=== PATIENT | male | born 1940 | race Caucasian/White ===

== ENCOUNTER → 2016-07-23 | Outpatient (CLI) | payer MEDICARE, OTHER ==
[~2016-07-23] MED LIST: AMITRIPTYLINE10 MG PO; ASPIRIN 32325 MG/TAB PO; CO Q-1010 MG PO; FLOMAX0.4 MG PO; GLIMEPIRIDE2 MG PO; GLUCOPHAGE500 MG PO; GLYBURIDE2.5 MG PO; LEVITRA10 MG PO; LISINOPRIL10 MG PO; MEDI-FIRST ASP325 MG PO; OSTEO BI-FLEX1 TAB PO; PROVENTIL0.09 MG/Ac IH; SPIRIVA18 MCG IH; SUPER EPA1 SGL PO; TOPROL XL50 MG PO; TRAZADONE HYDR100 MG PO; VITAMIN D NATU400 IU PO; VITAMIN D1000 IU PO; ZOCOR20 MG PO; ZOLOFT100 MG PO
== END ==
LOC: RAD 09:53
DX: R06.2 Wheezing (principal); R91.1 Solitary pulmonary nodule

== ENCOUNTER → 2016-08-17 | Outpatient (CLI) | payer MEDICARE, OTHER | LOC: RAD 15:35 | DX: R91.1 Solitary pulmonary nodule (principal) ==

== ENCOUNTER 2016-09-03 20:50 | Emergency (ER) | payer MEDICARE, OTHER | END 2016-09-03 21:41 | disposition home or self-care (01) | LOC: ED 20:50 | DX: S61.412A Laceration without foreign body of left hand, initial encounter (principal); S50.01XA Contusion of right elbow, initial encounter; S60.512A Abrasion of left hand, initial encounter; S60.511A Abrasion of right hand, initial encounter; S60.416A Abrasion of right little finger, initial encounter; W45.8XXA Other foreign body or object entering through skin, initial encounter | CPT/HCPCS: 90715; A4550; A4649 ==

== ENCOUNTER → 2017-03-27 | Outpatient (CLI) | payer MEDICARE, OTHER ==
[2016-09-03 21:41] VITALS: BP 137/83
[2017-03-27 11:12] LABS: BASO # 0.1 (0.02-0.10); EOS # 0.4 (0.04-0.40); EOS % 3.6 % (0.0-4.0); LYMPH# 2.6 (1.50-4.00); MEAN CELL VOLUME 99 fl (78-100); MEAN CORPUSCULAR HEMOGLOBIN 33 pg (27-31); MEAN CORPUSCULAR HGB CONC 33 g/dL (33-37); MONO # 0.9 (0.20-0.80); NEU # 6.2 (1.40-6.50); PLATELET COUNT 190 K/mm3 (130-400); RED BLOOD COUNT 4.53 M/mm3 (4.20-5.60); RED CELL DISTRIBUTION WIDTH 14.1 % (11.5-14.5); WHITE BLOOD COUNT 10.2 K/mm3 (4.8-10.8)
[2017-03-27 11:22] LABS: ALBUMIN 4.3 g/dL (3.5-5.0); BUN/CREATININE RATIO 21.2 (6.0-26.0); CALCIUM 10.1 mg/dL (8.4-10.2); POTASSIUM 4.6 mmol/L (3.6-5.0); TOTAL BILIRUBIN 0.6 mg/dL (0.2-1.3)
== END ==
LOC: LAB 10:45
PROVIDERS: Nurse Practitioner Family
DX: E11.9 Type 2 diabetes mellitus without complications (principal); Z12.5 Encounter for screening for malignant neoplasm of prostate; J43.2 Centrilobular emphysema; N52.9 Male erectile dysfunction, unspecified

== ENCOUNTER → 2017-07-10 | Outpatient (CLI) | payer MEDICARE, OTHER ==
[2016-09-03 21:41] VITALS: BP 137/83
== END ==
LOC: LAB 09:54
DX: E11.9 Type 2 diabetes mellitus without complications (principal); J44.1 Chronic obstructive pulmonary disease with (acute) exacerbation; E78.2 Mixed hyperlipidemia; I10 Essential (primary) hypertension

== ENCOUNTER → 2017-07-11 | Outpatient (CLI) | payer MEDICARE, OTHER ==
[2016-09-03 21:41] VITALS: BP 137/83
[2017-07-11 12:12] LABS: BUN/CREATININE RATIO 17.1 (6.0-26.0); CALCIUM 9.5 mg/dL (8.4-10.2); POTASSIUM 4.6 mmol/L (3.6-5.0)
== END ==
LOC: LAB 11:42
PROVIDERS: Nurse Practitioner Family
DX: E11.9 Type 2 diabetes mellitus without complications (principal); N18.3 Chronic kidney disease, stage 3 (moderate)

== ENCOUNTER → 2017-10-16 | Outpatient (CLI) | payer MEDICARE, OTHER ==
[2016-09-03 21:41] VITALS: BP 137/83
[2017-10-16 13:30] LABS: BUN/CREATININE RATIO 16.4 (6.0-26.0); CALCIUM 9.3 mg/dL (8.4-10.2); CARBON DIOXIDE 25 mmol/L (22-30); GLUCOSE 143 mg/dL (75-110); POTASSIUM 4.6 mmol/L (3.6-5.0); SODIUM 140 mmol/L (137-145)
== END ==
LOC: LAB 13:04
PROVIDERS: Nurse Practitioner Family
DX: E11.22 Type 2 diabetes mellitus with diabetic chronic kidney disease (principal); N18.3 Chronic kidney disease, stage 3 (moderate)

== ENCOUNTER 2017-11-04 19:29 | Emergency (ER) | payer MEDICARE, OTHER ==
[~2017-11-04] VITALS: Ht 190.5 cm; Wt 113.2 kg
[2017-11-04] MEDS ORDERED: ZESTRIL10 M1 PO (19:51)
[2017-11-04] MEDS ORDERED: ZOLOFT 100MG100 MG PO (19:52)
[2017-11-04] MEDS ORDERED: RT SPIRIVA INH18 MCG IH (19:52)
[2017-11-04] MEDS ORDERED: ZOCOR20 M1 PO (19:52)
[2017-11-04] MEDS ORDERED: PROAIR HFA0.09 MG/AC IH (19:52)
[2017-11-04] MEDS ORDERED: CENTRUM SILVER1 EAC4 PO (19:52)
[2017-11-04] MEDS ORDERED: RESTORIL30 M1 PO (19:53)
[2017-11-04] MEDS ORDERED: GLUCOPHAGE500 MG/TAB PO (19:53)
[2017-11-04] MEDS ORDERED: CHILDREN'S ASPI81 M1 PO (19:53)
[2017-11-04] MEDS ORDERED: TOPROL XL 50MG50 MG PO (19:55)
[2017-11-04 20:20] LABS: BASO # 0.1 (0.02-0.10); EOS # 0.6 (0.04-0.40); HEMATOCRIT 41.4 % (42.0-52.0); HEMOGLOBIN 13.9 g/dL (13.5-18.0); LYMPH# 2.1 (1.50-4.00); MEAN CELL VOLUME 100 fl (78-100); MEAN CORPUSCULAR HEMOGLOBIN 34 pg (27-31); MEAN CORPUSCULAR HGB CONC 34 g/dL (33-37); MEAN PLATELET VOLUME 10.5 fl (7.4-10.4); MONO # 1.2 (0.20-0.80); NEU # 8.3 (1.40-6.50); PLATELET COUNT 143 K/mm3 (130-400); RED BLOOD COUNT 4.14 M/mm3 (4.20-5.60); RED CELL DISTRIBUTION WIDTH 14.2 % (11.5-14.5); WHITE BLOOD COUNT 12.3 K/mm3 (4.8-10.8)
[2017-11-04 20:48] LABS: CALCIUM 9.4 mg/dL (8.4-10.2); POTASSIUM 4.5 mmol/L (3.6-5.0); TOTAL BILIRUBIN 0.5 mg/dL (0.2-1.3); TOTAL PROTEIN 7.3 g/dL (6.3-8.2)
[2017-11-04 21:50] VITALS: BP 148/78
[2017-11-06] MEDS ORDERED: NICOTINE21 MG/24 H TD (12:10)
[2017-11-06] MEDS ORDERED: ALBUTEROL2.5 MG/3 M IH (12:11)
[2017-11-06] MEDS ORDERED: LEVAQUIN 750MG750 M1 PO (12:12)
[2017-11-06] MEDS ORDERED: AMARYL 2MG T2 MG/TAB PO (12:13)
[2017-11-06] MEDS ORDERED: PREDNISONE10 MG PO (12:14)
== END 2017-11-04 21:50 | disposition other institution (70) ==
LOC: ED 19:29 → MED/SURG 21:50 → ED 21:50
PROVIDERS: Physician Assistant
DX: J44.1 Chronic obstructive pulmonary disease with (acute) exacerbation (principal); F17.210 Nicotine dependence, cigarettes, uncomplicated; E11.9 Type 2 diabetes mellitus without complications; I10 Essential (primary) hypertension; N28.9 Disorder of kidney and ureter, unspecified; D72.829 Elevated white blood cell count, unspecified; R91.1 Solitary pulmonary nodule
CPT/HCPCS: J2930

== ENCOUNTER → 2017-11-11 | Outpatient (CLI) | payer MEDICARE, OTHER ==
[2017-11-06 11:15] VITALS: BP 124/59
[~2017-11-11] MED LIST changes: +ALBUTEROL2.5 MG/3 M IH; +AMARYL 2MG T2 MG/TAB PO; +CENTRUM SILVER1 EAC4 PO; +CHILDREN'S ASPI81 M1 PO; +GLUCOPHAGE500 MG/TAB PO; +LEVAQUIN 750MG750 M1 PO; +NICOTINE21 MG/24 H TD; +PREDNISONE10 MG PO; +PROAIR HFA0.09 MG/AC IH; +RESTORIL30 M1 PO; +RT SPIRIVA INH18 MCG IH; +TOPROL XL 50MG50 MG PO; +ZESTRIL10 M1 PO; +ZOCOR20 M1 PO; +ZOLOFT 100MG100 MG PO
[2017-11-11 11:12] LABS: BUN/CREATININE RATIO 25.2 (6.0-26.0); CALCIUM 8.8 mg/dL (8.4-10.2); POTASSIUM 4.5 mmol/L (3.6-5.0)
[2017-11-11 11:19] LABS: HEMATOCRIT 43.1 % (42.0-52.0); HEMOGLOBIN 14.2 g/dL (13.5-18.0); MEAN CELL VOLUME 99 fl (78-100); MEAN CORPUSCULAR HEMOGLOBIN 33 pg (27-31); MEAN CORPUSCULAR HGB CONC 33 g/dL (33-37); PLATELET COUNT 206 K/mm3 (130-400); RED BLOOD COUNT 4.36 M/mm3 (4.20-5.60); RED CELL DISTRIBUTION WIDTH 14.4 % (11.5-14.5); WHITE BLOOD COUNT 17.5 K/mm3 (4.8-10.8)
[2017-11-11 11:42] LABS: BAND 1 % (0-10); LYMPHOCYTE 16 % (20-51); MONOCYTE 4 % (3-10); NEUTROPHILS 76 % (42-75)
== END ==
LOC: LAB 10:28
PROVIDERS: Nurse Practitioner Family
DX: J20.8 Acute bronchitis due to other specified organisms (principal); N18.3 Chronic kidney disease, stage 3 (moderate); J44.1 Chronic obstructive pulmonary disease with (acute) exacerbation

== ENCOUNTER → 2018-03-07 | Outpatient (CLI) | payer MEDICARE, OTHER ==
[2017-11-06 11:15] VITALS: BP 124/59
[2018-03-07 09:00] LABS: ALBUMIN 4.1 g/dL (3.5-5.0); CALCIUM 9.6 mg/dL (8.4-10.2); POTASSIUM 4.4 mmol/L (3.6-5.0); TOTAL BILIRUBIN 0.6 mg/dL (0.2-1.3); TOTAL PROTEIN 7.2 g/dL (6.3-8.2)
== END ==
LOC: RAD 08:28
PROVIDERS: Internal Medicine
DX: R91.1 Solitary pulmonary nodule (principal); R59.0 Localized enlarged lymph nodes
CPT/HCPCS: Q9967

== ENCOUNTER → 2018-04-14 | Outpatient (CLI) | payer MEDICARE, OTHER ==
[2017-11-06 11:15] VITALS: BP 124/59
== END ==
LOC: RAD 13:24
DX: R90.82 White matter disease, unspecified (principal); C34.90 Malignant neoplasm of unspecified part of unspecified bronchus or lung
CPT/HCPCS: A9585

== ENCOUNTER → 2018-04-28 | Outpatient (CLI) | payer MEDICARE, OTHER ==
[2017-11-06 11:15] VITALS: BP 124/59
== END ==
LOC: LAB 11:24
PROVIDERS: Internal Medicine
DX: C34.12 Malignant neoplasm of upper lobe, left bronchus or lung (principal); I10 Essential (primary) hypertension

== ENCOUNTER → 2018-08-05 | Outpatient (CLI) | payer MEDICARE, OTHER ==
[2017-11-06 11:15] VITALS: BP 124/59
[2018-08-05 15:26] LABS: HEMATOCRIT 30.5 % (42.0-52.0); HEMOGLOBIN 10.7 g/dL (13.5-18.0); MEAN CORPUSCULAR HGB CONC 35 g/dL (33-37); MEAN PLATELET VOLUME 10.2 fl (7.4-10.4); PLATELET COUNT 56 K/mm3 (130-400); RED BLOOD COUNT 2.71 M/mm3 (4.20-5.60); RED CELL DISTRIBUTION WIDTH 20.2 % (11.5-14.5); WHITE BLOOD COUNT 4.9 K/mm3 (4.8-10.8)
[2018-08-05 16:13] LABS: ALBUMIN 3.5 g/dL (3.5-5.0); POTASSIUM 5.1 mmol/L (3.6-5.0); TOTAL BILIRUBIN 0.6 mg/dL (0.2-1.3); TOTAL PROTEIN 6.2 g/dL (6.3-8.2)
[2018-08-05 16:30] LABS: MEAN CELL VOLUME 113 fl (78-100); MEAN CORPUSCULAR HEMOGLOBIN 40 pg (27-31)
[2018-08-05 16:31] LABS: LYMPHOCYTE 30 % (20-51); MONOCYTE 19 % (3-10); NEUTROPHILS 50 % (42-75)
== END ==
LOC: LAB 14:58
PROVIDERS: Family Medicine
DX: E11.9 Type 2 diabetes mellitus without complications (principal); I10 Essential (primary) hypertension

== ENCOUNTER → 2018-08-11 | Outpatient (CLI) | payer MEDICARE, OTHER ==
[2017-11-06 11:15] VITALS: BP 124/59
== END ==
LOC: RAD 08:27
DX: R18.8 Other ascites (principal)

== ENCOUNTER → 2018-09-04 | Outpatient (CLI) | payer MEDICARE, OTHER ==
[2017-11-06 11:15] VITALS: BP 124/59
== END ==
LOC: RAD 07:45
DX: N18.9 Chronic kidney disease, unspecified (principal); N32.89 Other specified disorders of bladder

== ENCOUNTER → 2018-09-25 | Outpatient (CLI) | payer MEDICARE, OTHER ==
[2017-11-06 11:15] VITALS: BP 124/59
[2018-09-25 10:49] LABS: URINE APPEARANCE CLEAR; URINE BILIRUBIN NEGATIVE (NEGATIVE); URINE BLOOD NEGATIVE (NEGATIVE); URINE COLOR YELLOW; URINE GLUCOSE NEGATIVE (NEGATIVE); URINE KETONE NEGATIVE (NEGATIVE); URINE LEUKOCYTE ESTERASE NEGATIVE (NEGATIVE); URINE NITRATE NEGATIVE (NEGATIVE); URINE PROTEIN(semi-quant) TRACE mg/dL (NEGATIVE); URINE UROBILINOGEN NORMAL (NORMAL)
[2018-09-25 10:50] LABS: HEMATOCRIT 35.8 % (42.0-52.0); HEMOGLOBIN 11.8 g/dL (13.5-18.0); MEAN PLATELET VOLUME 10.2 fl (7.4-10.4); RED BLOOD COUNT 3.22 M/mm3 (4.20-5.60); RED CELL DISTRIBUTION WIDTH 13.8 % (11.5-14.5); WHITE BLOOD COUNT 5.4 K/mm3 (4.8-10.8)
[2018-09-25 10:56] LABS: CALCIUM 9.5 mg/dL (8.4-10.2); POTASSIUM 4.2 mmol/L (3.6-5.0)
== END ==
LOC: LAB 10:24
PROVIDERS: Internal Medicine Medical Oncology
DX: E11.22 Type 2 diabetes mellitus with diabetic chronic kidney disease (principal); N18.9 Chronic kidney disease, unspecified

== ENCOUNTER → 2019-01-21 | Outpatient (CLI) | payer MEDICARE, OTHER ==
[2017-11-06 11:15] VITALS: BP 124/59
[2019-01-21 10:57] LABS: ALBUMIN 4.2 g/dL (3.4-4.8); POTASSIUM 4.7 mmol/L (3.5-5.1)
[2019-01-21 10:58] LABS: CALCIUM 10.2 mg/dL (8.3-10.5)
[2019-01-21 10:59] LABS: TOTAL PROTEIN 8.2 g/dL (6.2-8.1)
[2019-01-21 11:01] LABS: TOTAL BILIRUBIN 0.4 mg/dL (0.2-1.2)
[2019-01-21 11:05] LABS: HEMOGLOBIN 13.9 g/dL (13.5-18.0); MEAN CELL VOLUME 107 fl (78-100); MEAN CORPUSCULAR HGB CONC 33 g/dL (33-37); MEAN PLATELET VOLUME 10.3 fl (7.4-10.4); PLATELET COUNT 124 K/mm3 (130-400); RED BLOOD COUNT 3.92 M/mm3 (4.20-5.60); RED CELL DISTRIBUTION WIDTH 14.4 % (11.5-14.5); WHITE BLOOD COUNT 7.1 K/mm3 (4.8-10.8)
[2019-01-21 11:06] LABS: MEAN CORPUSCULAR HEMOGLOBIN 36 pg (27-31)
[2019-01-21 11:19] LABS: LYMPHOCYTE 31 % (20-51); MONOCYTE 11 % (3-10); NEUTROPHILS 54 % (42-75)
[2019-01-21 11:57] LABS: URINE APPEARANCE CLEAR; URINE BILIRUBIN NEGATIVE (NEGATIVE); URINE BLOOD NEGATIVE (NEGATIVE); URINE COLOR YELLOW; URINE GLUCOSE NEGATIVE (NEGATIVE); URINE KETONE NEGATIVE (NEGATIVE); URINE LEUKOCYTE ESTERASE NEGATIVE (NEGATIVE); URINE MUCUS PRESENT (NOT PRESENT); URINE NITRATE NEGATIVE (NEGATIVE); URINE PROTEIN(semi-quant) TRACE mg/dL (NEGATIVE); URINE UROBILINOGEN NORMAL (NORMAL)
== END ==
LOC: LAB 10:25
PROVIDERS: Family Medicine
DX: Z00.00 Encounter for general adult medical examination without abnormal findings (principal); R73.9 Hyperglycemia, unspecified; R53.83 Other fatigue; E78.5 Hyperlipidemia, unspecified; M54.9 Dorsalgia, unspecified

== ENCOUNTER → 2019-11-06 | Outpatient (CLI) | payer MEDICARE, OTHER ==
[2017-11-06 11:15] VITALS: BP 124/59
== END ==
LOC: LAB 12:37
DX: C34.90 Malignant neoplasm of unspecified part of unspecified bronchus or lung (principal); E78.5 Hyperlipidemia, unspecified; R73.9 Hyperglycemia, unspecified

== ENCOUNTER → 2020-01-11 | Outpatient (CLI) | payer MEDICARE, OTHER ==
[2019-12-07 10:24] VITALS: BP 136/70
[~2020-01-11] MED LIST changes: +CIALIS5 MG PO; +QUETIAPINE FUMA50 MG PO; +SYMBICORT1 AE3 IH; +TRULICITY0.75 MG/0. SQ
== END ==
LOC: VAS 15:45 → RAD 15:45 → VAS 15:49
DX: C34.12 Malignant neoplasm of upper lobe, left bronchus or lung (principal); I49.1 Atrial premature depolarization; I12.9 Hypertensive chronic kidney disease with stage 1 through stage 4 chronic kidney disease, or unspecified chronic kidney disease; N18.3 Chronic kidney disease, stage 3 (moderate); I31.3 Pericardial effusion (noninflammatory); I08.2 Rheumatic disorders of both aortic and tricuspid valves

== ENCOUNTER → 2020-04-06 | Outpatient (CLI) | payer MEDICARE, OTHER ==
[2019-12-07 10:24] VITALS: BP 136/70
[2020-04-06 15:55] LABS: EOS # 0.2 (0.04-0.40); EOS % 2.6 % (0.0-4.0); HEMOGLOBIN 13.8 g/dL (13.5-18.0); LYMPH# 1.4 (1.50-4.00); MEAN CELL VOLUME 108 fl (78-100); MEAN CORPUSCULAR HGB CONC 34 g/dL (33-37); MEAN PLATELET VOLUME 10.5 fl (7.4-10.4); MONO # 0.8 (0.20-0.80); NEU # 4.8 (1.40-6.50); PLATELET COUNT 140 K/mm3 (130-400); RED BLOOD COUNT 3.79 M/mm3 (4.20-5.60); RED CELL DISTRIBUTION WIDTH 15.7 % (11.5-14.5); WHITE BLOOD COUNT 7.2 K/mm3 (4.8-10.8)
[2020-04-06 16:02] LABS: MEAN CORPUSCULAR HEMOGLOBIN 36 pg (27-31)
== END ==
LOC: LAB 15:41
PROVIDERS: Physician Assistant
DX: Z12.5 Encounter for screening for malignant neoplasm of prostate (principal); E78.5 Hyperlipidemia, unspecified; E11.22 Type 2 diabetes mellitus with diabetic chronic kidney disease; N18.30 Chronic kidney disease, stage 3 unspecified; I12.9 Hypertensive chronic kidney disease with stage 1 through stage 4 chronic kidney disease, or unspecified chronic kidney disease; J44.9 Chronic obstructive pulmonary disease, unspecified

== ENCOUNTER → 2020-11-23 | Outpatient (CLI) | payer MEDICARE, OTHER ==
[2020-11-23 12:41] LABS: BASO # 0.05 (0.02-0.10); EOS # 0.29 (0.04-0.40); EOS % 4.5 % (0.0-4.0); HEMATOCRIT 44.1 % (42.0-52.0); HEMOGLOBIN 14.5 g/dL (13.5-18.0); LYMPH# 1.26 (1.50-4.00); MEAN CELL VOLUME 99 fl (78-100); MEAN CORPUSCULAR HEMOGLOBIN 33 pg (27-31); MEAN CORPUSCULAR HGB CONC 33 g/dL (33-37); MEAN PLATELET VOLUME 9.3 fl (7.4-10.4); MONO # 0.89 (0.20-0.80); NEU # 3.86 (1.40-6.50); PLATELET COUNT 133 K/mm3 (130-400); RED BLOOD COUNT 4.44 M/mm3 (4.20-5.60); RED CELL DISTRIBUTION WIDTH 13.6 % (11.5-14.5); WHITE BLOOD COUNT 6.5 K/mm3 (4.8-10.8)
[2020-11-23 12:48] LABS: ALBUMIN 3.9 g/dL (3.4-4.8); POTASSIUM 4.5 mmol/L (3.5-5.1)
[2020-11-23 12:49] LABS: CALCIUM 9.7 mg/dL (8.3-10.5)
[2020-11-23 12:51] LABS: TOTAL PROTEIN 7.5 g/dL (6.2-8.1)
[2020-11-23 12:52] LABS: TOTAL BILIRUBIN 0.4 mg/dL (0.2-1.2)
== END ==
LOC: LAB 12:24
PROVIDERS: Family Medicine
DX: Z00.00 Encounter for general adult medical examination without abnormal findings (principal); E11.9 Type 2 diabetes mellitus without complications; E78.5 Hyperlipidemia, unspecified

== ENCOUNTER → 2021-06-13 | Outpatient (CLI) | payer MEDICARE, OTHER ==
[~2021-06-13] VITALS: Ht 188 cm; Wt 115.0 kg
[2021-06-13 12:15] VITALS: BP 136/90
[2021-06-13 12:45] LABS: BASO # 0.05 K/mm3 (0.02-0.10); EOS # 0.54 K/mm3 (0.04-0.40); EOS % 6.1 % (0.0-4.0); HEMATOCRIT 44.1 % (42.0-52.0); HEMOGLOBIN 14.4 g/dL (13.5-18.0); LYMPH# 1.24 K/mm3 (1.50-4.00); MEAN CELL VOLUME 101 fl (78-100); MEAN CORPUSCULAR HEMOGLOBIN 33 pg (27-31); MEAN CORPUSCULAR HGB CONC 33 g/dL (33-37); MEAN PLATELET VOLUME 10.1 fl (7.4-10.4); MONO # 0.99 K/mm3 (0.20-0.80); NEU # 5.85 K/mm3 (1.40-6.50); PLATELET COUNT 153 K/mm3 (130-400); RED BLOOD COUNT 4.35 M/mm3 (4.20-5.60); RED CELL DISTRIBUTION WIDTH 14.4 % (11.5-14.5); WHITE BLOOD COUNT 8.8 K/mm3 (4.8-10.8)
[2021-06-13 12:51] LABS: POTASSIUM 4.6 mmol/L (3.5-5.1)
[2021-06-13 12:52] LABS: ALBUMIN 3.9 g/dL (3.4-4.8)
[2021-06-13 12:54] LABS: TOTAL PROTEIN 7.6 g/dL (6.2-8.1)
[2021-06-13 12:56] LABS: TOTAL BILIRUBIN 0.4 mg/dL (0.2-1.2)
== END ==
LOC: LAB 12:07
PROVIDERS: Family Medicine
DX: Z00.00 Encounter for general adult medical examination without abnormal findings (principal); E11.9 Type 2 diabetes mellitus without complications; E78.5 Hyperlipidemia, unspecified; E55.9 Vitamin D deficiency, unspecified
CPT/HCPCS: J1644

== ENCOUNTER 2021-09-14 09:46 | Emergency (ER) | payer MEDICARE, OTHER ==
[2021-09-14] MEDS ORDERED: LEVOTHYROXINE0.2 MG PO (09:57)
[2021-09-14] MEDS ORDERED: METOPROLOL SUCC25 M1 PO (09:58)
[2021-09-14] MEDS ORDERED: MEGACE 40MG40 MG/TAB PO (09:58)
[2021-09-14] MEDS ORDERED: LEVOTHYROXINE0.05 MG PO (09:58)
[2021-09-14] MEDS ORDERED: OLANZAPINE7.5 MG PO (09:59)
[2021-09-14] MEDS ORDERED: PANTOPRAZOLE SO40 MG PO (09:59)
[2021-09-14] MEDS ORDERED: SIMVASTATIN20 M1 PO (10:00)
[2021-09-14 10:33] LABS: BASO # 0.02 K/mm3 (0.02-0.10); EOS # 0.28 K/mm3 (0.04-0.40); EOS % 3.3 % (0.0-4.0); HEMATOCRIT 41.1 % (42.0-52.0); HEMOGLOBIN 13.4 g/dL (13.5-18.0); LYMPH# 1.46 K/mm3 (1.50-4.00); MEAN CELL VOLUME 101 fl (78-100); MEAN CORPUSCULAR HEMOGLOBIN 33 pg (27-31); MEAN CORPUSCULAR HGB CONC 33 g/dL (33-37); MEAN PLATELET VOLUME 9.7 fl (7.4-10.4); MONO # 1.09 K/mm3 (0.20-0.80); NEU # 5.45 K/mm3 (1.40-6.50); PLATELET COUNT 150 K/mm3 (130-400); RED BLOOD COUNT 4.06 M/mm3 (4.20-5.60); RED CELL DISTRIBUTION WIDTH 13.8 % (11.5-14.5); WHITE BLOOD COUNT 8.4 K/mm3 (4.8-10.8)
[2021-09-14 10:45] LABS: ALBUMIN 3.5 g/dL (3.4-4.8); POTASSIUM 4.5 mmol/L (3.5-5.1)
[2021-09-14 10:46] LABS: CALCIUM 9.8 mg/dL (8.3-10.5)
[2021-09-14 10:47] LABS: TOTAL PROTEIN 6.6 g/dL (6.2-8.1)
[2021-09-14 10:49] LABS: TOTAL BILIRUBIN 0.4 mg/dL (0.2-1.2)
[2021-09-14 12:09] LABS: URINE WBC 0 /hpf (0-3)
[2021-09-14 12:42] LABS: URINE APPEARANCE CLEAR; URINE BILIRUBIN NEGATIVE (NEGATIVE); URINE BLOOD TRACE (NEGATIVE); URINE COLOR YELLOW; URINE GLUCOSE NEGATIVE (NEGATIVE); URINE KETONE NEGATIVE (NEGATIVE); URINE LEUKOCYTE ESTERASE NEGATIVE (NEGATIVE); URINE NITRATE NEGATIVE (NEGATIVE); URINE PROTEIN(semi-quant) 1+ (NEGATIVE); URINE UROBILINOGEN NORMAL (NORMAL)
[2021-09-14 13:01] VITALS: BP 153/80
== END 2021-09-14 12:56 | disposition home or self-care (01) ==
LOC: ED 09:46
PROVIDERS: Family Medicine
DX: C34.92 Malignant neoplasm of unspecified part of left bronchus or lung (principal); F17.200 Nicotine dependence, unspecified, uncomplicated
CPT/HCPCS: J7030; Q9967

== ENCOUNTER → 2022-04-10 | Outpatient (CLI) | payer MEDICARE, OTHER ==
[~2022-04-10] MED LIST changes: +LEVOTHYROXINE0.05 MG PO; +LEVOTHYROXINE0.2 MG PO; +MEGACE 40MG40 MG/TAB PO; +METOPROLOL SUCC25 M1 PO; +OLANZAPINE7.5 MG PO; +PANTOPRAZOLE SO40 MG PO; +SIMVASTATIN20 M1 PO
== END ==
LOC: LAB 08:44
PROVIDERS: Internal Medicine Nephrology
DX: I12.9 Hypertensive chronic kidney disease with stage 1 through stage 4 chronic kidney disease, or unspecified chronic kidney disease (principal); N18.32 Chronic kidney disease, stage 3b; E11.8 Type 2 diabetes mellitus with unspecified complications

== ENCOUNTER → 2022-07-25 | Outpatient (CLI) | payer MEDICARE, OTHER ==
[2022-07-25 17:40] LABS: ALBUMIN 4.2 g/dL (3.4-4.8); POTASSIUM 4.8 mmol/L (3.5-5.1)
[2022-07-25 17:41] LABS: CALCIUM 10.2 mg/dL (8.3-10.5)
[2022-07-25 17:42] LABS: TOTAL PROTEIN 7.7 g/dL (6.2-8.1)
[2022-07-25 17:44] LABS: TOTAL BILIRUBIN 0.4 mg/dL (0.2-1.2)
== END ==
LOC: LAB 17:06
PROVIDERS: Nurse Practitioner
DX: I10 Essential (primary) hypertension (principal)

== ENCOUNTER → 2022-08-30 | Outpatient (CLI) | payer MEDICARE, OTHER | LOC: LAB 15:28 | DX: E03.9 Hypothyroidism, unspecified (principal) ==

== ENCOUNTER 2023-03-25 14:55 | Emergency (ER) | payer MEDICARE, OTHER ==
[~2023-03-25] VITALS: Ht 190.5 cm; Wt 113.6 kg
[2023-03-25 15:03] VITALS: BP 117/74
[2023-03-25] MEDS ORDERED: ATORVASTATIN CA20 MG PO (15:08)
[2023-03-25] MEDS ORDERED: AMLODIPINE BESYL5 MG PO (15:08)
[2023-03-25] MEDS ORDERED: BISOPROLOL FUMAR5 GM PO (15:09)
[2023-03-25] MEDS ORDERED: DONEPEZIL HCL5 M1 PO (15:10)
[2023-03-25] MEDS ORDERED: DILTIAZEM 24HR120 M2 PO (15:10)
[2023-03-25] MEDS ORDERED: CLARITIN10 M1 PO (15:10)
[2023-03-25] MEDS ORDERED: ELIQUIS5 MG PO (15:11)
[2023-03-25] MEDS ORDERED: HYDROCHLOROTH12.5 M1 PO (15:11)
[2023-03-25] MEDS ORDERED: TRULICITY0.75 MG/0. SC (15:11)
[2023-03-25] MEDS ORDERED: MEMANTINE HCL10 MG PO (15:12)
[2023-03-25 16:47] LABS: BASO # 0.02 K/mm3 (0.02-0.10); EOS # 0.21 K/mm3 (0.04-0.40); EOS % 2.4 % (0.0-4.0); HEMATOCRIT 42.9 % (42.0-52.0); HEMOGLOBIN 14.2 g/dL (13.5-18.0); LYMPH# 1.44 K/mm3 (1.50-4.00); MEAN CELL VOLUME 101 fl (78-100); MEAN CORPUSCULAR HEMOGLOBIN 33 pg (27-31); MEAN CORPUSCULAR HGB CONC 33 g/dL (33-37); NEU # 5.88 K/mm3 (1.40-6.50); PLATELET COUNT 149 K/mm3 (130-400); RED BLOOD COUNT 4.25 M/mm3 (4.20-5.60); RED CELL DISTRIBUTION WIDTH 14.2 % (11.5-14.5); WHITE BLOOD COUNT 8.6 K/mm3 (4.8-10.8)
[2023-03-25 16:53] LABS: ALBUMIN 4.1 g/dL (3.4-4.8)
[2023-03-25 16:55] LABS: CALCIUM 10.5 mg/dL (8.3-10.5)
[2023-03-25 16:56] LABS: TOTAL PROTEIN 7.8 g/dL (6.2-8.1)
[2023-03-25 16:58] LABS: TOTAL BILIRUBIN 0.4 mg/dL (0.2-1.2)
[2023-03-25] MEDS ORDERED: MORGIDOX 1X100100 MG PO ×3 (18:25→18:38)
[2023-03-25] MEDS ORDERED: PREDNISONE20 MG PO ×3 (18:25→18:38)
== END 2023-03-25 18:43 | disposition home or self-care (01) ==
LOC: ED 14:55
PROVIDERS: Physician Assistant
DX: J44.1 Chronic obstructive pulmonary disease with (acute) exacerbation (principal); F17.210 Nicotine dependence, cigarettes, uncomplicated; Z79.899 Other long term (current) drug therapy; Z20.822 Contact with and (suspected) exposure to COVID-19
CPT/HCPCS: J2930

== ENCOUNTER → 2024-03-09 | Outpatient (CLI) | payer MEDICARE, OTHER ==
[~2024-03-09] MED LIST changes: +AMLODIPINE BESYL5 MG PO; +ATORVASTATIN CA20 MG PO; +BISOPROLOL FUMAR5 GM PO; +CLARITIN10 M1 PO; +DILTIAZEM 24HR120 M2 PO; +DONEPEZIL HCL5 M1 PO; +ELIQUIS5 MG PO; +HYDROCHLOROTH12.5 M1 PO; +MEMANTINE HCL10 MG PO; +MORGIDOX 1X100100 MG PO; +PREDNISONE20 MG PO; +TRULICITY0.75 MG/0. SC
== END ==
LOC: LAB 15:57
DX: E11.9 Type 2 diabetes mellitus without complications (principal)

== ENCOUNTER → 2024-07-06 | Outpatient (CLI) | payer MEDICARE, OTHER ==
[2024-07-06 16:54] LABS: BASO # 0.03 K/mm3 (0.02-0.10); EOS % 1.8 % (0.0-4.0); HEMATOCRIT 42.7 % (42.0-52.0); HEMOGLOBIN 13.9 g/dL (13.5-18.0); LYMPH# 2.38 K/mm3 (1.50-4.00); MEAN CELL VOLUME 103 fl (78-100); MEAN CORPUSCULAR HEMOGLOBIN 34 pg (27-31); MEAN CORPUSCULAR HGB CONC 33 g/dL (33-37); MEAN PLATELET VOLUME 9.3 fl (7.4-10.4); MONO # 0.91 K/mm3 (0.20-0.80); NEU # 7.69 K/mm3 (1.40-6.50); PLATELET COUNT 192 K/mm3 (130-400); RED BLOOD COUNT 4.13 M/mm3 (4.20-5.60); RED CELL DISTRIBUTION WIDTH 14.2 % (11.5-14.5); WHITE BLOOD COUNT 11.3 K/mm3 (4.8-10.8)
[2024-07-06 17:02] LABS: ALBUMIN 4.3 g/dL (3.4-4.8)
[2024-07-06 17:03] LABS: CALCIUM 10.5 mg/dL (8.3-10.5)
[2024-07-06 17:04] LABS: TOTAL PROTEIN 8.4 g/dL (6.2-8.1)
[2024-07-06 17:06] LABS: TOTAL BILIRUBIN 0.4 mg/dL (0.2-1.2)
== END ==
LOC: LAB 16:38
PROVIDERS: Family Medicine
DX: I10 Essential (primary) hypertension (principal); E78.5 Hyperlipidemia, unspecified; E11.9 Type 2 diabetes mellitus without complications; E55.9 Vitamin D deficiency, unspecified